=== PATIENT | female | born 1990 | race Caucasian/White ===

== ENCOUNTER 2021-01-01 21:17 | Inpatient (IN) | payer MEDICAID ==
[~2021-01-01] VITALS: Ht 157.5 cm; Wt 94.0 kg
[2021-01-01] MEDS ORDERED: LIDOCAINE 1%, 20ML ONE (21:24)
[2021-01-01] MEDS ORDERED: MISOPROSTOL 200 MCG TABLET ONE (21:24)
[2021-01-01] MEDS ORDERED: NEWBORN KIT ONE (21:24)
[2021-01-01] MEDS ORDERED: OXYTOCIN 30U/ 0.9% NaCL 500ML 500 ML ONE (21:24)
[2021-01-01] MEDS ORDERED: MISOPROSTOL 25 MCG TABLET ONE (21:47)
[2021-01-01] MEDS: LACTATED RINGERS 1,000 ML IV SCH (21:55)
[2021-01-01] MEDS ORDERED: SODIUM CITRATE/CITRIC ACID 30 ML UDC PO PRN (22:00)
[2021-01-01] MEDS ORDERED: FENTANYL PF 100 MCG/2ML IV PRN (22:00)
[2021-01-01] MEDS ORDERED: D5%-LACTATED RINGERS 1,000 ML IV SCH (22:00)
[2021-01-01] MEDS ORDERED: CALCIUM CARBONATE 500 MG TAB.CHEW PO PRN (22:00)
[2021-01-01] MEDS ORDERED: METOCLOPRAMIDE 5 MG/ML, 2ML IVPush PRN (22:00)
[2021-01-01] MEDS ORDERED: TERBUTALINE 1 MG/ML, 1ML SQ PRN (22:00)
[2021-01-01] MEDS ORDERED: TERBUTALINE 1 MG/ML, 1ML IVPush PRN (22:00)
[2021-01-01] MEDS ORDERED: FENTANYL PF 100 MCG/2ML IVPush PRN (22:00)
[2021-01-01 22:14] LABS: BASOPHILS % (AUTO) 1 % (0-1); EOSINOPHILS % (AUTO) 1 % (1-7); LYMPHOCYTES % (AUTO) 17 % (22-44); MEAN CORPUSCULAR HEMOGLOBIN 29.1 pg (27.0-34.8); MEAN CORPUSCULAR HGB CONC 34.1 g/dL (32.4-35.8); MEAN PLATELET VOLUME 8.7 fL (7.4-10.4); MONOCYTES % (AUTO) 5 % (2-9); NEUTROPHILS % (AUTO) 76 % (42-75); PLATELET COUNT 269 x10^3/uL (130-400); RED BLOOD COUNT 4.15 x10^6/uL (3.82-5.3); RED CELL DISTRIBUTION WIDTH 14.2 % (9.6-15.2)
[2021-01-01] MEDS: MISOPROSTOL 25 MCG TABLET VG PRN (22:15)
[2021-01-01] MEDS ORDERED: PLEASE ENTER ALLERGIES MC SCH (22:30)
[2021-01-01] MEDS ORDERED: PLEASE ENTER HEIGHT AND WEIGHT MC SCH (22:30)
[2021-01-01 22:36] VITALS: BP 127/78
[2021-01-02] MEDS: MISOPROSTOL 25 MCG TABLET VG PRN (02:29)
[2021-01-02] MEDS: LACTATED RINGERS 1,000 ML IV SCH ×2 (08:19→09:16)
[2021-01-02] MEDS: ONDANSETRON 2MG/ML, 2ML IVPush PRN ×2 (08:27→19:37)
[2021-01-02] MEDS ORDERED: BUPIVACAINE 0.25% ONE (08:41)
[2021-01-02] MEDS ORDERED: FENTANYL/BUPIV./NS/PF 250 ML EPIDCONT ONE (08:42)
[2021-01-02] MEDS ORDERED: FENTANYL/BUPIV./NS/PF 250 ML EPIDCONT SCH (09:30)
[2021-01-02] MEDS ORDERED: LACTATED RINGERS 1,000 ML IV SCH (09:30)
[2021-01-02] MEDS ORDERED: OXYTOCIN 30U/ 0.9% NaCL 500ML 500 ML IV PRN (09:30)
[2021-01-02] MEDS ORDERED: LACTATED RINGERS 1,000 ML IVBOLUS PRN (09:30)
[2021-01-02] MEDS ORDERED: EPHEDRINE 50 MG/ML, 1ML IVPush PRN (09:30)
[2021-01-03] MEDS ORDERED: BUPIVACAINE 0.25% ONE ×2 (02:06→05:52)
[2021-01-03] MEDS: ONDANSETRON 2MG/ML, 2ML IVPush PRN ×2 (04:29→10:26)
[2021-01-03] MEDS ORDERED: KETOROLAC 30 MG/1 ML ONE (11:57)
[2021-01-03] MEDS: OXYTOCIN 30U/ 0.9% NaCL 500ML 500 ML IV SCH ×3 (12:00→22:00)
[2021-01-03] MEDS ORDERED: SIMETHICONE 80 MG CHEW TAB PO PRN (12:00)
[2021-01-03] MEDS: KETOROLAC 30 MG/1 ML IVPush SCH ×2 (12:00→17:41)
[2021-01-03] MEDS ORDERED: MISOPROSTOL 200 MCG TABLET PR ONE (12:30)
[2021-01-03] MEDS ORDERED: HYDROcodone/APAP 10/325 MG TABLET ONE (14:58)
[2021-01-03] MEDS ORDERED: ONDANSETRON 2MG/ML, 2ML IVPush PRN (15:00)
[2021-01-03] MEDS ORDERED: HYDROcodone/APAP 5/325 TABLET PO PRN (15:00)
[2021-01-03] MEDS ORDERED: ACETAMINOPHEN 325 MG TABLET PO PRN ×2 (15:00)
[2021-01-03] MEDS: HYDROcodone/APAP 5/325 TABLET PO PRN ×2 (15:04→19:53)
[2021-01-03 16:19] VITALS: BP 106/74
[2021-01-03 18:29] VITALS: BP 120/84
[2021-01-03 19:37] LABS: BASOPHILS % (AUTO) 1 % (0-1); EOSINOPHILS % (AUTO) 1 % (1-7); LYMPHOCYTES % (AUTO) 12 % (22-44); MEAN CORPUSCULAR HEMOGLOBIN 29.1 pg (27.0-34.8); MEAN CORPUSCULAR HGB CONC 33.6 g/dL (32.4-35.8); MEAN PLATELET VOLUME 8.4 fL (7.4-10.4); MONOCYTES % (AUTO) 7 % (2-9); NEUTROPHILS % (AUTO) 80 % (42-75); PLATELET COUNT 214 x10^3/uL (130-400); RED BLOOD COUNT 3.76 x10^6/uL (3.82-5.3); RED CELL DISTRIBUTION WIDTH 14.3 % (9.6-15.2)
[2021-01-03] MEDS: DOCUSATE 100 MG CAPSULE PO PRN (19:53)
[2021-01-04] MEDS: KETOROLAC 30 MG/1 ML IVPush SCH ×2 (00:19→08:10)
[2021-01-04] MEDS: HYDROcodone/APAP 5/325 TABLET PO PRN ×2 (00:19→04:34)
[2021-01-04 00:30] VITALS: BP 125/86
[2021-01-04] MEDS: OXYTOCIN 30U/ 0.9% NaCL 500ML 500 ML IV SCH (01:00)
[2021-01-04 04:42] VITALS: BP 125/86
[2021-01-04] MEDS: DOCUSATE 100 MG CAPSULE PO PRN (08:10)
[2021-01-04 08:22] VITALS: BP 137/83
[2021-01-04] MEDS ORDERED: PRENATAL VIT/IRON/FA 1 EACH TABLET PO SCH (09:00)
== END 2021-01-04 16:00 | disposition home or self-care (01) | DRG 560 ==
LOC: LDIP 21:17 → 2NW 01-03 15:46
PROVIDERS: ADMIT Obstetrics & Gynecology; ATTEND Obstetrics & Gynecology
PROC: 10D07Z6 Extraction of Products of Conception, Vacuum, Via Natural or Artificial Opening (ICD-10-PCS; principal; 2021-01-03)
PROC: 0KQM0ZZ Repair Perineum Muscle, Open Approach (ICD-10-PCS; 2021-01-03)
PROC: 3E0DXGC Introduction of Other Therapeutic Substance into Mouth and Pharynx, External Approach (ICD-10-PCS; 2021-01-03)
PROC: 3E0R3BZ Introduction of Anesthetic Agent into Spinal Canal, Percutaneous Approach (ICD-10-PCS; 2021-01-03)
PROC: 00HU33Z Insertion of Infusion Device into Spinal Canal, Percutaneous Approach (ICD-10-PCS; 2021-01-03)
DX: O24.429 Gestational diabetes mellitus in childbirth, unspecified control (principal); O40.3XX0 Polyhydramnios, third trimester, not applicable or unspecified; Z20.822 Contact with and (suspected) exposure to COVID-19; O69.1XX0 Labor and delivery complicated by cord around neck, with compression, not applicable or unspecified; O70.1 Second degree perineal laceration during delivery; Z37.0 Single live birth; Z3A.38 38 weeks gestation of pregnancy
CPT/HCPCS: 36415; 76815; 82962; 85025; 86592; 86850; 86900; 87635; G0378; J1885; J2405; J3010; J2590; J7120